=== PATIENT | male | born 1945 | race Caucasian/White ===

== ENCOUNTER 2017-01-26 15:49 | Emergency (ER) | payer MEDICARE, OTHER ==
[2015-12-07 08:39] VITALS: BMI 32.5
[~2017-01-26 15:49] MED LIST: BAYER CHEWABLE81 MG PO; HYDROCODONE-APA1 TAB PO; MICARDIS40 MG PO; NEXIUM40 MG PO; PACERONE200 MG PO; XARELTO20 MG PO; ZOCOR40 MG PO
== END 2017-01-26 18:29 | disposition home or self-care (01) ==
LOC: D.ER 15:49
DX: S16.1XXA Strain of muscle, fascia and tendon at neck level, initial encounter (principal); W06.XXXA Fall from bed, initial encounter; Y93.89 Activity, other specified; Y92.013 Bedroom of single-family (private) house as the place of occurrence of the external cause; E78.5 Hyperlipidemia, unspecified; I48.91 Unspecified atrial fibrillation; I10 Essential (primary) hypertension

== ENCOUNTER 2018-02-11 07:29 | Outpatient (CLI) | payer MEDICARE, OTHER ==
[~2018-02-11] VITALS: Ht 190.5 cm; Wt 122.7 kg
--- NOTE | ~2018-02-11 | HEMODYNAMI ---
PATIENT:BESSY JACOBS MEDICAL RECORD: [id number] : 47 LOCATION:D.CAT ADMISSION DATE: 02/11/18 Generatedon:02/11/20189:50 Patient name: BESSY JACOBS Patient #: [id number] SSN: : Date of study: 02/11/2018 Page: Of Hemodynamic Procedure Report Patient Data Patient Demographics Procedure consent was obtained First Name: BESSY Gender: Male Last Name: REYNALDO : 1945 Patient #: [id number] Age: 72 year(s) Race: Unknown Additional ID: [id number] Contact details Address: [address] [place] [address] State: [place] [facility] [place]: [address] Past Medical History Allergies Allergen Reaction Date Comments Reported Penicillins 02/11/2018 Admission Admission Data Admission Date: 02/11/2018 Admission Time: 7:29 Procedure Procedure Types Cath Procedure Diagnostic Procedure LHC LHC w/Coronaries FFR/IVUS Intra-Coronary IVUS Initial PCI Procedure Coronary Stent Coronary Stent Initial Procedure Description Procedure Date Procedure Date: 02/11/2018 Procedure Start Time: 9:31 Procedure End Time: 9:47 Procedure Staff Name Function Valdo Amor MD Performing Physician Faraz Santiago RN Nurse Gale Rowe RT Scrub Bill Villasenor RT Monitor Procedure Data Cath Procedure Fluoroscopy Diagnostic fluoroscopy Total fluoroscopy Time: 6.1 time: 6.1 min min Diagnostic fluoroscopy Total fluoroscopy dose: 917 dose: 917 mGy mGy Contrast Material Contrast Material Type Amount (ml) Isovue 300 97 Entry Location Entry Primary Successful Side Size Upsize Upsize Entry Closure Cantrell ccessful Closure Location (Fr) 1 (Fr) 2 (Fr) Remarks Device Remarks Radial Right 6 Fr Mechanical artery Short Compression Estimated blood loss: 10 ml Diagnostic catheters Device Type Used For End Catheter Placement DIAGNOSTIC [place] 110cm 5 Procedure Fr catheter ([id number]) Procedure Complications No complications Procedure Medications Medication Administration Route Dosage 0.9% NaCl I.V. 100 ml/hr Oxygen etCO2 Nasal cannula 2 l/min Heparin Flush Bag added to field 2 bags (1000units/500ml NS) Lidocaine 2% added to field 20 Radial Cocktail added to field 1 syringe (Verapomil 2mg/Nitro 400mcg/Heparin 1500units) Versed I.V. 1 mg Fentanyl I.V. 50 mcg Radial Cocktail I.A. 1 syringe (Verapomil 2mg/Nitro 400mcg/Heparin 1500units) Heparin Bolus I.V. 4000 units Integrilin (Bolus I.V. 11.3 ml 2mg/ml) Integrilin (Bolus wasted 8.7 ml 2mg/ml) Plavix P.O. 600 mg Versed I.V. 1 mg Fentanyl I.V. 50 mcg Hemodynamics Rest Heart Rate: 53 (bpm) Snapshots Pre Cath Intra NCS Post Cath Vital Signs Time Heart Resp SPO2 etCO2 NIBP (mmHg) Rhythm Pain Sedation Rate (ipm) (%) (mmHg) Status Level (bpm) 9:12:20 53 20 97 0 151/81(122) A-Flutter 0 (11) 10(A) , No pain 9:17:02 50 16 98 36 146/88(127) A-Flutter 0 (11) 10(A) , No pain 9:21:43 48 18 91 32.9 115/75(99) A-Flutter 0 (11) 10(A) , No pain 9:26:21 48 19 92 0 117/74(91) A-Flutter 0 (11) 10(A) , No pain 9:31:02 45 19 92 0 119/70(97) A-Flutter 0 (11) 10(A) , No pain 9:35:39 49 19 94 0 101/62(79) A-Flutter 0 (11) 10(A) , No pain 9:40:15 50 11 89 24.7 112/66(92) A-Flutter 0 (11) 10(A) , No pain 9:44:54 48 18 93 38.9 129/77(104) A-Flutter 0 (11) 10(A) , No pain Medications Time Medication Route Dose Verified Delivered Reason Note s Effectiveness by by 9:13:58 0.9% NaCl I.V. 100 Faraz Faraz Per physician ml/hr Pamela Santiago RN RN 9:14:11 Oxygen etCO2 2 l/min Faraz Faraz Per physician Nasal Pamela Santiago cannula RN RN 9:14:23 Heparin Flush added 2 bags Faraz Faraz used for Bag to Lorshawna Santiago procedure (1000units/500ml field RN RN NS) 9:14:38 Lidocaine 2% added 20ml Faraz Faraz for local to vial Lorigan Lorigan anesthetic field RN RN 9:14:50 Radial Cocktail added 1 Faraz Faraz used for (Verapomil to syringe Lorigan Lorigan procedure 2mg/Nitro field RN RN 400mcg/Heparin 1500units) 9:29:47 Versed I.V. 1 mg Faraz Faraz for sedation Pamela Santiago RN RN 9:29:57 Fentanyl I.V. 50 mcg Faraz Faraz for sedation Pamela Santiago RN RN 9:33:09 Radial Cocktail I.A. 1 Faraz Valdo for (Verapomil syringe Lorigan Tauabran MD vasodilation 2mg/Nitro RN 400mcg/Heparin 1500units) 9:35:09 Versed I.V. 1 mg Faraz Faraz for sedation Pamela Santiago RN RN 9:35:16 Fentanyl I.V. 50 mcg Faraz Faraz for sedation Pamela Santiago RN RN 9:45:20 Heparin Bolus I.V. 4000 Faraz Faraz for units Lorshawna Santiago anticoagulation RN RN 9:46:07 Integrilin I.V. 11.3 ml Faraz Faraz for (Bolus 2mg/ml) Pamela Santiago antiplatelet RN RN therapy 9:46:51 Integrilin wasted 8.7 ml Faraz Faraz to sharp's (Bolus 2mg/ml) Pamela Santiago RN RN 9:47:19 Plavix P.O. 600 mg Faraz Faraz for Pamela Santiago antiplatelet RN RN therapy Procedure Log Time Note 9:00:47 Gale Rowe RT(R) sent for patient. Start room use. 9:00:48 Time tracking: Regular hours (M-F 7:00 - 5:00) 9:00:53 Plan of Care:Hemodynamics will remain stable., Cardiac rhythm will remain stable., Comfort level will be maintained., Respiratory function will remain adequate., Patient/ family verbilizes understanding of procedure., Procedure tolerated without complication., Recovers from procedure without complications.. 9:02:59 H&P Date Dictated: 01/26/2018 Within 30 days and on chart., H&P Addendum completed by physician on day of procedure. (MUST COMPLETE FOR ALL OUTPATIENTS). 9:03:05 Is patient on blood thinner?Yes 9:03:22 XARELTO LAST DOSE 02/09/2018 9:05:43 Patient received from Pre/Post Procedure Room to CCL 1 Alert and oriented. Tansferred to table in Supine position. 9:05:44 Warm blankets applied, and mikhail hugger turned on for patient comfort. 9:05:45 Correct patient and procedure confirmed by team. 9:05:46 Signed procedure consent form obtained from patient. 9:05:47 ECG and BP/O2 sat monitors applied to patient. 9:05:47 Full Disclosure recording started 9:11:19 Vital chart was started 9:11:22 Baseline sample Acquired. 9:11:29 Rhythm: atrial flutter 9:11:38 Pre-procedure instructions explained to patient. 9:11:38 Pre-op teaching completed and patient verbalized understanding. 9:11:40 Family in patients room. 9:11:42 Patient NPO since Midnight. 9:11:48 Patient allergic to Penicillins 9:11:51 Is the patient allergic to Iodine/contrast media? No. 9:11:53 Patient diabetic? No. 9:11:56 Previous problem with sedation/anesthesia? No ? 9:11:57 Snore? Yes 9:12:00 Sleep apnea? Yes 9:12:01 Deviated septum? No 9:12:02 Opens mouth fully? Yes 9:12:03 Sticks out tongue? Yes 9:12:05 Airway obstruction? No ? 9:12:06 Dentures? No ? 9:12:09 Pre procedure: right dorsailis pedis pulse 2+ Normal; easily identifiable; not easily obliterated 9:12:11 Modified Burak's test Ulnar < 7 seconds 9:12:13 Patient pain scale 0/10 ?. 9:12:17 IV patent on arrival in left hand with 0.9% NaCl at KVO. 9:12:22 Lab results completed and on chart. 9:12:26 Right Radial & Right Groin area was prepped with chlora-prep and draped in sterile fashion 9:12:27 Alarms reviewed by R. N. 9:12:27 Sharps counted by scrub and verified by R.N. 9:13:58 0.9% NaCl 100 ml/hr I.V. was administered by Faraz Santiago RN; Per physician; 9:14:11 Oxygen 2 l/min etCO2 Nasal cannula was administered by Faraz Santiago RN; Per physician; 9:14:23 Heparin Flush Bag (1000units/500ml NS) 2 bags added to field was administered by Faraz Santiago RN; used for procedure; 9:14:38 Lidocaine 2% 20ml vial added to field was administered by Faraz Santiago RN; for local anesthetic; 9:14:50 Radial Cocktail (Verapomil 2mg/Nitro 400mcg/Heparin 1500units) 1 syringe added to field was administered by Faraz Santiago RN; used for procedure; 9:15:08 Use device set Radial Dx or PCI 9:15:09 ACIST Syringe (97071) opened to sterile field. 9:15:09 Medline Cath Pack ([id number]) opened to sterile field. 9:15:10 Bag Decanter (2002S) opened to sterile field. 9:15:11 DIAGNOSTIC WIRE .035 260cm J wire (521426) opened to sterile field. 9:15:11 ACIST Hand Control (32087) opened to sterile field. 9:15:12 ACIST Manifold (88601) opened to sterile field. 9:15:12 Tegaderm 4 x 4 (1626W) opened to sterile field. 9:15:14 MBrace Wrist Support ([id number]) opened to sterile field. 9:15:15 SHEATH 6Fr Prelude Radial ([id number]) opened to sterile field. 9:22:13 Physician paged 9:28:27 Physician arrived 9:28:27 Final Timeout: patient, procedure, and site verified with staff and physician. All members of the team are in agreement. 9:28:29 Right Radial & Right Groin site verified by team. 9:28:31 Physical assessment completed. ASA score P 2 - A patient with mild systemic disease as per Valdo Amor MD. 9:28:34 Sedation plan: IV Moderate Sedation Medication:Versed, Fentanyl 9:29:30 Zero performed for pressure channel P1 9:29:47 Versed 1 mg I.V. was administered by Faraz Santiago RN; for sedation; 9:29:57 Fentanyl 50 mcg I.V. was administered by Faraz Santiago RN; for sedation; 9:31:42 Procedure started. 9:31:46 Local anesthetic to right radial artery with Lidocaine 2% by Valdo Amor MD.INITIAL ACCESS ONLY 9:31:59 A 6 Fr Short sheath was inserted into the Right Radial artery 9:32:41 A DIAGNOSTIC [place] 110cm 5 Fr catheter ([id number]) was advanced over the wire and used for Procedure. 9:33:09 Radial Cocktail (Verapomil 2mg/Nitro 400mcg/Heparin 1500units) 1 syringe I.A. was administered by Valdo Amor MD; for vasodilation; 9:33:29 LV gram done using CHINCHILLA 9:33:32 Injector settings: Ml/sec: 5, Volume: 15, 9:34:18 EF : 55 % 9:34:40 LCA angiography performed. 9:35:09 Versed 1 mg I.V. was administered by Faraz Santiago RN; for sedation; 9:35:16 Fentanyl 50 mcg I.V. was administered by Faraz Santiago RN; for sedation; 9:35:58 [place] IVUS Catheter (49712B) opened to sterile field. 9:35:58 INFLATOR Merit BasixCompak (TC7521) opened to sterile field. 9:36:04 CHOICE PT Extra Support 182cm wire ([id number]) opened to sterile field. 9:36:10 RCA angiography performed. 9:37:40 [place] IVUS Catheter (21837A) opened to sterile field. 9:37:49 GUIDE 6FR EBU 3.5 catheter ([id number]) opened to sterile field. 9:37:53 Catheter removed. 9:38:00 6 Fr EBU 3.5 guide catheter was inserted over the wire 9:38:07 CHOICE PT wire advanced. 9:40:19 Wire advanced across lesion. 9:41:35 IVUS catheter advanced over wire. 9:41:37 IVUS pass to LAD lesion performed. 9:41:38 IVUS catheter removed over wire. 9:42:30 TR BAND Standard ([id number]) opened to sterile field. 9:43:15 Post-procedure physical assessment completed. ASA score P 2 - A patient with mild systemic disease as per Valdo Amor MD. 9:43:45 Inflate balloon Inflation number: 1 A INTEGRITY RX 3.5 x 15 stent ([id number]) was prepped and advanced across the Prox LAD, then inflated to 18 SILVIO for 0:10 (min:sec). 9:45:20 Heparin Bolus 4000 units I.V. was administered by Faraz Santiago RN; for anticoagulation; 9:45:36 Stent catheter was removed intact over wire. 9:45:37 Wire removed. 9:45:38 Guide catheter removed. 9:45:45 Sheath removed intact; hemostasis achieved with Mechanical Compression to the Right Radial artery. 9:45:48 Procedure ended.(Physican Out) 9:45:57 Fluoroscopy time 06.10 minutes. 9:46:01 Fluoroscopy dose: 917 mGy 9:46:01 Flurop Dose total: 917 9:46:05 Contrast amount:Isovue 300 97ml. 9:46:06 Sharps counted by scrub and verified by R.N. 9:46:07 Integrilin (Bolus 2mg/ml) 11.3 ml I.V. was administered by Faraz Santiago RN; for antiplatelet therapy; 9:46:08 TR band inflated with 10cc of air. 9:46:08 Insertion/operative site no bleeding no hematoma. 9:46:11 Post Procedure Pulses reassessed and unchanged 9:46:17 Post procedure rhythm: unchanged. 9:46:19 Estimated blood loss: 10 ml 9:46:21 Post procedure instruction explained to patient.Patient verbalizes understanding. 9:46:21 Patient needs reinforcement of post procedure teaching. 9:46:36 Procedure type changed to Cath procedure, Diagnostic procedure, LHC, LHC w/Coronaries, FFR/IVUS, Intra-Coronary IVUS Initial, PCI procedure, Coronary Stent, Coronary Stent Initial 9:46:51 Integrilin (Bolus 2mg/ml) 8.7 ml wasted was administered by Faraz Santiago RN; to sharp's; 9:47:00 Procedure and supply charges have been captured, reviewed, submitted and are correct. 9:47:03 Procedure Complication : No complications 9:47:05 Vital chart was stopped 9:47:05 See physician's report for complete and final results. 9:47:06 Report given to Pre/Post Procedure Room. 9:47:09 Patient transfered to Pre/Post Procedure Room with Stretcher. 9:47:19 Plavix 600 mg P.O. was administered by Faraz Santiago RN; for antiplatelet therapy; 9:47:46 Procedure ended. 9:47:46 Full Disclosure recording stopped 9:47:49 End room use (Document Last) Intervention Summary Intervention Notes Time ActionType Lesion and Equipment Action# Pressure Duration Attributes Used 9:43:45 Inflate Prox LAD INTEGRITY RX 1 18 00:10 balloon 3.5 x 15 stent ([id number]) Device Usage Item Name Manufacture Quantity Catalog Number Hospital Part Current M inimal Lot# / Charge Number Stock Stock Serial# Code ACIST Syringe Acist 1 73150 923847 283567 694561 2 0 (35039) Medical Systems Inc Medline Cath Cardinal 1 [id number] 076952 32859 771628 5 Intellectual Investments ([id number]) Bag Decanter Microtek 1 2001S 067797 70357 387273 5 () Medical Inc. DIAGNOSTIC WIRE [place] 1 265217 348258 279221 828289 3 0 .035 260cm J wire (790145) ACIST Hand Acist 1 80918 317751 045333 271374 5 Control (51971) Medical Systems Inc ACIST Manifold Acist 1 01188 443401 280737 568932 5 (81153) Medical Systems Inc Tegaderm 4 x 4 3M 1 1626W 839873 064959 917219 5 (1626W) MBrace Wrist Advanced 1 140-0250-00 970166 97840 204971 5 Support Vascular ([id number]) Dynamics SHEATH 6Fr Merit 1 [id number] 010104 892634 855043 5 Prelude Radial Medical ([id number]) DIAGNOSTIC Terumo 1 40-4666 444752 288350 932363 5 [place] 110cm 5 Fr catheter (992158) [place] 2 [id number] 281971 810324 351356 8 [place] IVUS Catheter (18551H) INFLATOR Merit Merit 1 [id number] 323614 905479 057880 1 5 ChinaCache (KD5818) CHOICE PT Extra [place] 1 [id number] 853353 679611 156044 5 Support 182cm Scientific wire ([id number]) GUIDE 6FR EBU Medtronic 1 [id number] 976088 18585 662710 3 3.5 catheter ([id number]) INTEGRITY RX Medtronic 1 [id number] 332709 768156 850143 5 [id number] 3.5 x 15 stent ([id number]) TR BAND Terumo 1 [id number] 441801 320866 586996 4 0 Standard ([id number]) Signature Audit [place] Stage Time Signature Unsigned Intra-Procedure 02/11/2018 Bill Villasenor 9:50:51 AM RT(R) Signatures Monitor : Bill Villasenor RT Signature : Date : Time : [place] [id number] [place] [address]
--- NOTE | ~2018-02-11 | OP ---
PATIENT NAME: BESSY JACOBS MEDICAL RECORD: [id number] :47 LOCATION:D.CAT ADMISSION DATE: SURGEON: DERRICK WYNN MD DATE OF OPERATION: 02/11/2018 PROCEDURES: 1. PTCA stent LAD. 2. Intravascular ultrasound. 3. Left heart catheterization. 4. Selective coronary angiography. 5. Left ventriculogram. INDICATION: Angina and coronary artery disease. PROCEDURE IN DETAIL: After informed consent was obtained and after detailed explanation of risks, benefits as well as alternative therapies, the patient elected to proceed with angiogram and angioplasty. The right radial area was prepped and draped in normal sterile fashion. Right radial artery was cannulated via modified Seldinger technique with placement of 6-Cymro sheath. All catheters exchanged through this sheath. FINDINGS: The left ventriculogram was performed in standard 30-degree CHINCHILLA view, reveals good cardiac wall motion throughout all segments. Overall ejection fraction estimated 60%. SELECTIVE CORONARY ANGIOGRAPHY: 1. Left main is with no significant angiographic disease. 2. Left anterior descending has greater than 70% stenosis proximally confirmed by intravascular ultrasound. This is just proximal to a previously placed stent. This previously placed stent is widely patent. The remainder of the LAD has only mild irregularities. 3. Left circumflex has moderate irregularities, but no flow-limiting stenosis. 4. Right coronary artery has moderate irregularities, but no flow-limiting stenosis. PTCA STENT OF THE LAD: The stent used was a 3.5 x 15 mm Integrity. Result was 0% residual stenosis. OVERALL IMPRESSION: Successful percutaneous transluminal coronary angioplasty stent of the left anterior descending going from greater than 70% initial stenosis to 0% residual. TRANSINT:[id number] Voice Confirmation ID: [id number] DOCUMENT ID: [id number] DERRICK WYNN MD at 1403 CC: [id number] DICTATION DATE: 02/11/18 1011 FIELD RECORDER: 02/11/18 1254 DEP CLI 02/11/[address] [address]
[2018-02-11 07:52] VITALS: BP 171/69; Ht 190.5 cm; Wt 122.7 kg
[2018-02-11 08:22] LABS: CARBON DIOXIDE 27.8 mmol/L (21.0-32.0); CREATININE - SERUM 1.3 mg/dL (0.6-1.3); POTASSIUM - SERUM 4.8 mmol/L (3.5-5.1)
[2018-02-11 08:39] LABS: BASOPHILS 0.3 % (0-2); EOSINOPHILS 1.7 % (0-7); HEMATOCRIT 45.4 % (42.0-54.0); HEMOGLOBIN 15.4 g/dL (13.5-17.5); IMMATURE GRANULOCYTES 0.1 % (0-5); MCH 34.8 pg (26.0-34.0); MCHC 33.9 g/dL (31.0-37.0); MCV 102.5 fL (80.0-100.0); MEAN PLATELET VOLUME 12.4 fL (7.4-10.4); MONOCYTES 10.5 % (2-11); NEUTROPHILS 55.4 % (40-80); PLATELET COUNT 194 10x3/uL (130-400); RBC 4.43 10x6/uL (4.20-6.10); RDW 13.5 % (11.5-14.5); WBC 7.2 10x3/uL (4.8-10.8)
[2018-02-11] MEDS ORDERED: PLAVIX75 MG PO (10:00)
== END 2018-02-11 14:00 | disposition home or self-care (01) ==
LOC: D.CATH 07:29
PROVIDERS: Internal Medicine Interventional Cardiology
DX: I25.119 Atherosclerotic heart disease of native coronary artery with unspecified angina pectoris (principal); I48.91 Unspecified atrial fibrillation; R53.83 Other fatigue; Z01.812 Encounter for preprocedural laboratory examination